=== PATIENT | female | born 1955 | race Two or more races ===

== ENCOUNTER 2020-12-08 16:47 | Emergency (ER) | payer OTHER ==
[~2020-12-08] VITALS: Ht 162.6 cm; Wt 75.7 kg
[2020-12-08] MEDS ORDERED: LIPITOR20 MG (16:56)
== END 2020-12-08 18:01 | disposition home or self-care (01) ==
LOC: ER 16:47
DX: S40.022A Contusion of left upper arm, initial encounter (principal); S70.12XA Contusion of left thigh, initial encounter; S80.02XA Contusion of left knee, initial encounter; S00.83XA Contusion of other part of head, initial encounter; M54.2 Cervicalgia; M79.18 Myalgia, other site; W05.1XXA Fall from non-moving nonmotorized scooter, initial encounter; Y93.I9 Activity, other involving external motion; Y92.413 State road as the place of occurrence of the external cause; Y99.8 Other external cause status